=== PATIENT | female | born 1990 | race American Indian/Alaskan Native ===

== ENCOUNTER 2020-08-03 17:36 | Inpatient (IN) | payer OTHER ==
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
[2020-08-03 19:24] LABS: Basophils % (Auto) 0.4 % (0.0-1.8); Eosinophils % (Auto) 0.2 % (0.0-4.3); Hematocrit 40.3 % (30.3-42.9); Hemoglobin 13.5 gm/dl (10.1-14.3); Lymphocytes # (Auto) 1.1 K/mm3 (1.2-5.4); Lymphocytes % (Auto) 10.9 % (13.4-35.0); Mean Corpuscular HGB Conc 34 % (30-34); Mean Corpuscular Volume 96 fl (79-97); Monocytes # (Auto) 0.7 K/mm3 (0.0-0.8); Monocytes % (Auto) 7.6 % (0.0-7.3); Platelet Count 313 K/mm3 (140-440); Red Blood Count 4.21 M/mm3 (3.65-5.03); Red Cell Distribution Width 13.1 % (13.2-15.2)
[2020-08-03 19:31] LABS: BUN/Creatinine Ratio 13; Blood Urea Nitrogen 10 mg/dL (7-17); Calcium 8.9 mg/dL (8.4-10.2); Hemolysis Index 16
[2020-08-03 19:34] LABS: INR 1.01 (0.87-1.13)
[2020-08-03 19:35] LABS: Thrombin Time 15.1 Sec. (15.1-19.6)
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
[2020-08-03] MEDS ORDERED: ACETAMINOPHEN 650 MG RECT SUPP PR PRN (23:22)
[2020-08-03] MEDS ORDERED: ONDANSETRON 4 MG/2 ML INJ IV PRN (23:24)
[2020-08-03] MEDS ORDERED: MORPHINE 2 MG/1 ML INJ IV PRN (23:24)
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
[2020-08-04] MEDS ORDERED: LORazepam 2 MG/ML VIAL IV STA (12:18)
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
--- NOTE | 2020-08-04 14:48 | Magnetic Resonance Report ---
MRI CERVICAL SPINE 08/04/2020 INDICATION / CLINICAL INFORMATION: MAIN. Right-sided weakness. Slurred speech. COMPARISON: None available. FINDINGS: GENERAL OBSERVATIONS: Unenhanced and enhanced MR images of the cervical spine were obtained. There is no evidence of acute abnormality. Slight reversal of cervical lordosis is centered at the C5 -6 level with the patient positioned for this exam. There is no evidence of epidural hemorrhage or fluid collection. There is no evidence of spinal cord compression or intrinsic spinal cord abnormality. Postcontrast images demonstrate no abnormal contras t enhancement. [id number] ANALYSIS: C7-T1: Normal. C6-7: Normal. C5-6: Minimal disc bulging and small central disc protrusion. C4-5: Normal. C3-4: Normal. C2-3: Normal. CRANIO-CERVICAL JUNCTION: Unremarkable. BONE MARROW: No significant abnormality. PARASPINAL SOFT TISSUES: No significant abnormality. IMPRESSION: No evidence of spinal cord compression or intrinsic spinal cord abnormality. No acute abnormality. Signer Name: Jaciel Rockwell MD Signed: 08/04/2020 2:44 PM Workstation Name: [id number]
--- NOTE | 2020-08-04 14:54 | Magnetic Resonance Report ---
MRI BRAIN 08/04/2020 INDICATION / CLINICAL INFORMATION: right sided weakness. TECHNIQUE: Multiplanar, multisequence MR images of the brain were obtained. COMPARISON: None available. FINDINGS: BRAIN / INTRACRANIAL CONTENTS: Unenhanced MR images of the brain dated straight no evidence of intrac ranial abnormality. Ventricles and sulci are normal in size and shape. There is no evidence of ischemic injury, demyelination, hemorrhage, or mass. There are no abnormal ex tra-axial fluid collections. EXTRACRANIAL: Unremarkable CRANIOCERVICAL JUNCTION: No significant abnormality. VASCULAR FLOW-VOIDS: No significant abnormality. IMPRESSION: Negative unenhanced MRI of the brain. Signer Name: Jaciel Rockwell MD Signed: 08/04/2020 2:49 PM Workstation Name: [id number]
[2020-08-05 05:43] LABS: Blood Urea Nitrogen 15 mg/dL (7-17); Calcium 9.1 mg/dL (8.4-10.2); Hemolysis Index 2
[2020-08-05 05:45] LABS: BUN/Creatinine Ratio 21
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
[2020-08-05] MEDS ORDERED: POTASSIUM CHLORIDE ER 20 MEQ TAB PO ONE ×2 (08:00→13:00)
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
[2020-08-05] MEDS: VENLAFAXINE 75 MG TAB PO SCH (12:45)
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
[2020-08-06 06:39] LABS: Blood Urea Nitrogen 15 mg/dL (7-17); Calcium 8.8 mg/dL (8.4-10.2); Hemolysis Index 10
[2020-08-06 06:40] LABS: BUN/Creatinine Ratio 21
[2020-08-06 06:49] VITALS: BP 112/77
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
[2020-08-06] MEDS: VENLAFAXINE 75 MG TAB PO SCH (09:14)
== END 2020-08-06 12:05 | disposition home or self-care (01) | DRG 923 ==
LOC: ED 17:36 → 3A 22:17 → OBSVTOIN 08-04 12:04
PROVIDERS: ADMIT Internal Medicine; ATTEND Internal Medicine
DX: T71.193A Asphyxiation due to mechanical threat to breathing due to other causes, assault, initial encounter (principal); G81.91 Hemiplegia, unspecified affecting right dominant side; R53.1 Weakness; F80.81 Childhood onset fluency disorder; I10 Essential (primary) hypertension; F43.0 Acute stress reaction; F44.4 Conversion disorder with motor symptom or deficit; R55 Syncope and collapse
CPT/HCPCS: 36415; 70450; 70496; 70498; 70551; 72125; 72156; 80048; 84703; 85025; 85610; 85670; 85730; 93306; G0378; A9577; J2060; Q9967